=== PATIENT | female | born 1960 | race African-American/Black ===

== ENCOUNTER 2020-09-13 16:57 | Emergency (ER) | payer MEDICARE ==
[~2020-09-13 16:57] MED LIST: DULOXETINE HCL60 MG PO; HYDROXYZINE HCL50 MG PO; LASIX40 MG PO; LIPITOR40 MG PO; LOPRESSOR50 MG PO
[2020-09-13] MEDS ORDERED: HYDROCODON-ACE1 EAC2 PO (20:24)
[2020-09-13] MEDS ORDERED: TRAMADOL HCL50 MG PO (22:06)
== END 2020-09-13 22:40 | disposition home or self-care (01) ==
LOC: FER 16:57
DX: S83.91XA Sprain of unspecified site of right knee, initial encounter (principal); I10 Essential (primary) hypertension; Z88.6 Allergy status to analgesic agent; Z90.710 Acquired absence of both cervix and uterus; W19.XXXA Unspecified fall, initial encounter; Y92.512 Supermarket, store or market as the place of occurrence of the external cause
CPT/HCPCS: 73564; 99283